=== PATIENT | female | born 1980 ===

== ENCOUNTER 2017-06-20 15:51 | Emergency (ER) | payer BC ==
[2017-06-20 15:59] VITALS: BP 149/97
--- NOTE | 2017-06-20 16:06 | UC ---
Headache HPI - HPI Summary HPI Summary: 37 year old female with a history of migraines presents with complains of left sided migraine headache. - History Of Current Complaint Chief Complaint: UCHeadache Stated Complaint: HEADACHE Time Seen by Provider: 06/20/17 16:01 Hx Obtained From: Patient Hx Last Menstrual Period: 05/27/17 Onset/Duration: Sudden Onset Pain Scale Used: 0-10 Numeric - 8 - Allergies/Home Medications Allergies/Adverse Reactions: Allergies Allergy/AdvReac Type Severity Reaction Status Date / Time No Known Allergies Allergy Verified 06/20/17 15:59 PMH/Surg Hx/FS Hx/Imm Hx Previously Healthy: Yes - Surgical History Surgical History: Yes Surgery Procedure, Year, and Place: appendectomy, knee surgery, - Social History Alcohol Use: Occasionally Substance Use Type: None Smoking Status (MU): Never Smoked Tobacco - Immunization History Most Recent Influenza Vaccination: fall 2014 Most Recent Tetanus Shot: 11/19/15 Most Recent Pneumonia Vaccination: not indicated Review of Systems Constitutional: Negative Skin: Negative Eyes: Negative ENT: Negative Respiratory: Negative Cardiovascular: Negative Gastrointestinal: Negative Genitourinary: Negative Motor: Negative Neurovascular: Negative Musculoskeletal: Negative Neurological: Headache Psychological: Negative All Other Systems Reviewed And Are Negative: Yes Physical Exam Triage Information Reviewed: Yes Vital Signs: Initial Vital Signs Temp 36.4 C 06/20/17 15:54 Pulse 77 06/20/17 15:54 Resp 18 06/20/17 15:54 BP 149/97 06/20/17 15:54 Pulse Ox 100 06/20/17 15:54 Vital Signs Reviewed: Yes Eye Exam: Normal ENT Exam: Normal Dental Exam: Normal Neck exam: Normal Neck: Positive: 1 Respiratory Exam: Normal Cardiovascular Exam: Normal Abdominal Exam: Normal Musculoskeletal Exam: Normal Neurological Exam: Normal Psychological Exam: Normal Skin Exam: Normal Headache Course/Dx - Differential Dx/Diagnosis Provider Diagnoses: migraine headache Discharge - Discharge Plan Condition: Stable Disposition: HOME Prescriptions: Butalb/Acetamin/Caff TAB* [Fioricet TAB*] 1 tab PO Q6H PRN #12 tab MDD 4 PRN Reason: Headache Patient Education Materials: Acute Headache (ED) Referrals: Maik Traore NP [Primary Care Provider] - Quita Desir MD [Medical Doctor] -
== END 2017-06-20 16:20 | disposition home or self-care (01) ==
LOC: UCEAST 15:51
DX: G43.909 Migraine, unspecified, not intractable, without status migrainosus (principal)
CPT/HCPCS: 99212; G0463